=== PATIENT | female | born 1970 | race African-American/Black ===

== ENCOUNTER 2023-03-10 09:23 | Outpatient (CLI) | payer BC, SELFPAY ==
[2023-03-10 10:43] LABS: Alanine Aminotransferase 42 U/L (6-35); Albumin Level 4.4 g/dL (3.5-5.1); Alkaline Phosphatase 83 U/L (38-126); Aspartate Amino Transferase 54 U/L (14-36); Bilirubin,Total 0.5 mg/dL (0.2-1.3)
== END 2023-03-10 09:24 | disposition home or self-care (01) ==
LOC: ANHLAB 09:26
PROVIDERS: Visit Provider Obstetrics & Gynecology
DX: N95.1 Menopausal and female climacteric states (principal)
CPT/HCPCS: 36415; 80076